=== PATIENT | male | born 1985 | race Caucasian/White ===

== ENCOUNTER 2017-11-25 09:59 | Emergency (ER) | payer SELFPAY ==
[~2017-11-25] VITALS: Ht 170.2 cm; Wt 91.0 kg
[2017-11-25 10:11] VITALS: BP 137/80
== END 2017-11-25 14:15 | disposition home or self-care (01) ==
LOC: ER 09:59
DX: S00.81XA Abrasion of other part of head, initial encounter (principal); S00.83XA Contusion of other part of head, initial encounter; W01.0XXA Fall on same level from slipping, tripping and stumbling without subsequent striking against object, initial encounter; Y93.89 Activity, other specified
CPT/HCPCS: 70450; 70486; 99284

== ENCOUNTER 2019-03-24 10:23 | Inpatient (IN) | payer MEDICAID ==
[~2019-03-24] VITALS: Ht 175.3 cm; Wt 89.8 kg
[2019-03-24] MEDS ORDERED: DIVA125C2 PO (10:33)
[2019-03-24] MEDS ORDERED: LAMO50TA3 PO (10:33)
[2019-03-24] MEDS ORDERED: PERA2TAB PO (10:33)
[2019-03-24] MEDS ORDERED: MONT4GRA2 PO (10:33)
[2019-03-24] MEDS ORDERED: RISP0.2514 PO (10:33)
[2019-03-24] MEDS ORDERED: [UNRECOGNIZED DRUG - CODE] PO (10:33)
[2019-03-24] MEDS ORDERED: LACO50TA2 PO (10:33)
[2019-03-24] MEDS ORDERED: LEVE250T2 PO (10:33)
[2019-03-24] MEDS ORDERED: SODIUM CHLORIDE 0.9% 1,000 ML IV ONE (11:06)
[2019-03-24] MEDS ORDERED: ONDANSETRON HCL 4MG/2ML INJ IV STA (11:06)
[2019-03-24 11:27] LABS: BASOPHILS % 0.6 % (0.0-2.0); EOSINOPHILS % 0.9 % (0.0-5.0); HEMATOCRIT. 40.4 % (42.0-52.0); HEMOGLOBIN. 13.7 g/dL (14.0-18.0); LYMPHOCYTES % 23.8 % (20.0-50.0); MEAN CORPUSCULAR HEMOGLOBIN 27.3 pg (28.0-32.0); MEAN CORPUSCULAR VOLUME 80.2 fL (80.0-94.0); MEAN PLATELET VOLUME 8.1 fl (7.4-10.4); MONOCYTES % 12.1 % (2.0-8.0); NEUTROPHILS % 62.6 % (40.0-76.0); PLATELET 157 x1000/uL (130-400); RED BLOOD CELL COUNT 5.04 mill/uL (4.7-6.1); RED CELL DISTRIBUTION WIDTH 13.9 % (11.6-14.6)
[2019-03-24 11:28] LABS: CHLORIDE 105 mEq/L (98-107)
[2019-03-24 11:31] LABS: INR 1.1
[2019-03-24 11:36] LABS: ETHANOL BLOOD < 10 mg/dL
[2019-03-24 11:38] LABS: LDL CHOLESTEROL 90 mg/dL (5-100)
[2019-03-24 11:41] LABS: CREATINE KINASE 243 IU/L (39-308)
[2019-03-24] MEDS ORDERED: ONDANSETRON HCL 4MG/2ML INJ IV PRN (14:30)
[2019-03-24] MEDS ORDERED: ACETAMINOPHEN 325MG TABLET PO PRN (14:30)
[2019-03-24] MEDS ORDERED: CLONIDINE 0.1MG TABLET PO PRN (14:30)
[2019-03-24] MEDS ORDERED: LORAZEPAM 2MG/ML CPJ IV PRN (14:30)
[2019-03-24 16:30] VITALS: BP 129/81
[2019-03-24] MEDS ORDERED: DIVA-75 MT (16:40)
[2019-03-24] MEDS ORDERED: RISP1TAB26 PO (16:40)
[2019-03-24] MEDS ORDERED: LAMO200T MT (16:40)
[2019-03-24] MEDS ORDERED: [UNRECOGNIZED DRUG - CODE] PO (16:40)
[2019-03-24] MEDS ORDERED: LACO200T2 MT (16:40)
[2019-03-24] MEDS ORDERED: LORA10TA7 MT (16:40)
[2019-03-24] MEDS ORDERED: MONT10TA21 MT (16:40)
[2019-03-24] MEDS ORDERED: LEVE750T66 MT (16:40)
[2019-03-24] MEDS ORDERED: PERA6TAB PO (16:40)
[2019-03-24 16:43] VITALS: BP 129/81
[2019-03-24] MEDS ORDERED: DIVALPROEX SODIUM 250MG DR TABLET PO SCH (17:45)
[2019-03-24] MEDS ORDERED: RISPERIDONE 1MG TABLET PO SCH (17:45)
[2019-03-24] MEDS ORDERED: NON FORMULARY PATIENT HOME MED XX SCH (18:00)
[2019-03-24] MEDS: RISPERIDONE 1MG TABLET PO SCH (18:18)
[2019-03-24] MEDS: LAMOTRIGINE 100MG TABLET PO SCH (18:18)
[2019-03-24] MEDS: DIVALPROEX SODIUM 250MG DR TABLET PO SCH (18:21)
[2019-03-24] MEDS: DEXT 5%/0.45% NACL 1000ML 1,000 ML IV SCH (18:35)
[2019-03-24 20:35] VITALS: BP 117/66
[2019-03-24] MEDS: LEVETIRACETAM 500MG TABLET PO SCH (21:53)
[2019-03-25] VITALS: BP 116/74
[2019-03-25 04:00] VITALS: BP 112/73
[2019-03-25 06:02] LABS: CHLORIDE 105 mEq/L (98-107)
[2019-03-25 06:19] LABS: BASOPHILS % 0.7 % (0.0-2.0); EOSINOPHILS % 2.6 % (0.0-5.0); HEMATOCRIT. 39.6 % (42.0-52.0); HEMOGLOBIN. 13.4 g/dL (14.0-18.0); LYMPHOCYTES % 39.2 % (20.0-50.0); MEAN CORPUSCULAR HEMOGLOBIN 27.1 pg (28.0-32.0); MEAN CORPUSCULAR VOLUME 80.3 fL (80.0-94.0); MEAN PLATELET VOLUME 8.8 fl (7.4-10.4); MONOCYTES % 10.5 % (2.0-8.0); PLATELET 172 x1000/uL (130-400); RED BLOOD CELL COUNT 4.94 mill/uL (4.7-6.1); RED CELL DISTRIBUTION WIDTH 13.7 % (11.6-14.6)
[2019-03-25] MEDS: LACOSAMIDE 200 MG TABLET (VIMPAT) PO SCH ×2 (09:33→17:00)
[2019-03-25] MEDS: RISPERIDONE 1MG TABLET PO SCH ×2 (09:34→17:00)
[2019-03-25] MEDS: LEVETIRACETAM 500MG TABLET PO SCH ×2 (09:34→20:42)
[2019-03-25] MEDS: DIVALPROEX SODIUM 250MG DR TABLET PO SCH ×2 (09:34→17:00)
[2019-03-25] MEDS: DEXT 5%/0.45% NACL 1000ML 1,000 ML IV SCH ×2 (09:35→20:49)
[2019-03-25] MEDS: LAMOTRIGINE 100MG TABLET PO SCH ×2 (09:44→17:00)
[2019-03-25 12:00] VITALS: BP 102/57
[2019-03-25 16:00] VITALS: BP 120/71
[2019-03-25 20:00] VITALS: BP 111/68
[2019-03-26] VITALS: BP 112/60
[2019-03-26 04:00] VITALS: BP 112/76
[2019-03-26] MEDS: DIVALPROEX SODIUM 250MG DR TABLET PO SCH (08:50)
[2019-03-26] MEDS: LEVETIRACETAM 500MG TABLET PO SCH (08:51)
[2019-03-26] MEDS: LACOSAMIDE 200 MG TABLET (VIMPAT) PO SCH (08:51)
[2019-03-26] MEDS: LAMOTRIGINE 100MG TABLET PO SCH (08:52)
[2019-03-26] MEDS: RISPERIDONE 1MG TABLET PO SCH (08:52)
[2019-03-26 10:26] VITALS: BP 153/76
== END 2019-03-26 11:57 | disposition home or self-care (01) | DRG 52 ==
LOC: ER 10:23 → 6WST 12:37 → EDBEDREQ 12:44 → EDBEDREQSVC 12:44 → ENRESERV 15:24 → 6WST 17:03 → 8WST 21:10
PROVIDERS: ADMIT Hospitalist; ATTEND Hospitalist
DX: G92 Toxic encephalopathy (principal); G40.419 Other generalized epilepsy and epileptic syndromes, intractable, without status epilepticus; F79 Unspecified intellectual disabilities; Z79.899 Other long term (current) drug therapy
CPT/HCPCS: 36415; 71045; 80165; 80320; 80339; 82550; 82962; 83721; 83880; 84484; 93005; 96361; 96374; 99285; J2405; J7030; G0480